=== PATIENT | female | born 1995 | race Two or more races ===

== ENCOUNTER 2020-03-10 20:13 | Outpatient (CLI) | payer OTHER ==
[2020-03-10] MEDS ORDERED: PRENATAL TABLE1 EAC1 PO (20:16)
== END 2020-03-11 10:57 | disposition home or self-care (01) ==
LOC: OBS/DEL 20:13
PROVIDERS: ATTEND Obstetrics & Gynecology
DX: O76 Abnormality in fetal heart rate and rhythm complicating labor and delivery (principal); O23.43 Unspecified infection of urinary tract in pregnancy, third trimester

== ENCOUNTER 2020-03-20 06:54 | Inpatient (IN) | payer OTHER ==
[~2020-03-20] VITALS: Ht 170.2 cm; Wt 3.6 kg
[~2020-03-20 06:54] MED LIST: PRENATAL TABLE1 EAC1 PO
== END 2020-03-23 10:54 | disposition home or self-care (01) | DRG 788 ==
LOC: LDR 06:54 → OB/GYN 06:54 → O/R 19:33 → OB/GYN 21:26
PROVIDERS: ADMIT Obstetrics & Gynecology; ATTEND Obstetrics & Gynecology
PROC: 4A1HXFZ Monitoring of Products of Conception, Cardiac Rhythm, External Approach (ICD-10-PCS; 2020-03-20)
PROC: 3E033VJ Introduction of Other Hormone into Peripheral Vein, Percutaneous Approach (ICD-10-PCS; 2020-03-20)
PROC: 10D00Z1 Extraction of Products of Conception, Low, Open Approach (ICD-10-PCS; principal; 2020-03-20 17:30)
DX: O61.0 Failed medical induction of labor (principal); Z3A.39 39 weeks gestation of pregnancy; Z37.0 Single live birth; Z20.828 Contact with and (suspected) exposure to other viral communicable diseases